=== PATIENT | female | born 2000 | race Caucasian/White ===

== ENCOUNTER 2018-08-23 11:25 | Emergency (ER) | payer SELFPAY ==
[2018-08-23] MEDS ORDERED: Ketorolac Tromethamine 60 MG/2 ML VIAL ONE (11:48)
== END 2018-08-23 12:18 | disposition home or self-care (01) ==
LOC: MADERS 11:25
DX: N20.1 Calculus of ureter (principal); F17.210 Nicotine dependence, cigarettes, uncomplicated; Z87.442 Personal history of urinary calculi; Z71.6 Tobacco abuse counseling
CPT/HCPCS: 96372; 99406; J1885